=== PATIENT | female | born 1980 | race Caucasian/White ===

== ENCOUNTER 2022-05-08 16:30 | Emergency (ER) | payer MEDICARE, SELFPAY ==
--- NOTE | ~2022-05-08 | XR_ITS ---
EXAMINATION: XR CHEST CLINICAL INFORMATION: Cough with recent Covid COMPARISON: 02/08/2020 TECHNIQUE: 2 views of the chest were obtained. FINDINGS: There is an area of infiltrate seen overlying the left which is most likely in the lingula with some other ill-defined patchy densities seen more laterally. The heart size is normal. The right lung is clear. No pleural effusions. XR/XR chest 2V IMPRESSION: Left-sided infiltrate consistent with pneumonia.
[2022-05-08 17:34] VITALS: BP 139/86; PULSE 88; RESP 20; TEMP 36.2; O2SAT 98; BMI 27.4
--- NOTE | 2022-05-08 17:36 | ED.SOB ---
HPI - SOB/Dyspnea General Chief Complaint: Upper Respiratory Symptoms Stated Complaint: cob/ coughing Time Seen by Provider: 05/08/22 19:48 Source: patient Mode of arrival: ambulatory Limitations: no limitations History of Present Illness HPI Narrative: 41-year-old female presents to the ER for evaluation a harsh, deep, productive cough of green phlegm that started about 3 days ago. She reports being diagnosed with COVID-19 on April 16. She states she did not have a terrible cough with COVID and that this is new. She was vaccinated for COVID, and her disease is relatively mild. She reports the cough at this time is keeping her up at night. She is bringing up green phlegm. She denies any chest pain or fevers. She denies any wheezing or difficulty breathing however coughing fits can make it hard for her to catch her breath. She denies any chest pain or lower extremity swelling. MD elicited complaint: cough Pertinent past history: other (Recent COVID) Onset (ago): day(s) (3) Context: recent illness Timing: progressively worsening Severity: moderate Exacerbating factors: lying flat and coughing Relieving factors: nothing Associated symptoms: sputum production Related Data Previous Rx's Medication Instructions Recorded amoxicillin 875 mg-potassium 1 tab PO BID #20 tabs 05/08/22 clavulanate 125 mg tablet benzonatate 100 mg capsule 100 mg PO TID PRN cough #30 caps 05/08/22 guaifenesin 1,200 mg tablet, 1,200 mg PO BID #10 tabs 05/08/22 extended release 12 hr (Mucinex) hydrocodone-homatropine 5 mg-1.5 5 ml PO Q4-6H PRN cough #60 mL 05/08/22 mg/5 mL (5 mL) oral syrup (Hycodan) prednisone 20 mg tablet 40 mg PO DAILY #10 tabs 05/08/22 Allergies Allergy/AdvReac Type Severity Reaction Status Date / Time No Known Allergies Allergy Unverified 11/20/19 17:54 [facility] Social History Social History Advance Directives: No Advance Directives Information Provided: No Physical Exam Vital Signs: Vital Signs: Last Vital Signs Temp 97.6 F 05/08/22 20:17 Pulse 80 05/08/22 20:17 Resp 20 05/08/22 20:17 BP 141/82 H 05/08/22 20:17 Pulse Ox 98 05/08/22 20:17 O2 Del Method 05/08/22 20:17 BMI result Body Mass Index 27.4 Appearance: Alert. Oriented X3. No acute distress. Eyes: Pupils equal, round and reactive to light. ENT: Pharynx normal. Neck: Normal inspection. CVS: Normal heart rate and rhythm. Pulses normal. Respiratory: No respiratory distress. Breath sounds normal. Harsh deep cough, barking like Skin: Skin warm and dry. Normal skin color. Normal skin turgor. No rashes. Extremities: No lower extremity edema. Neuro: Oriented X 3. Grossly normal, nonfocal, steady gait Course Course Course Narrative: RME - 41 yo female with history of COVID-19 on Apr 06 (vaccinated) presents to the ER for evaluation of SOB and deep, harsh cough with green phelgm production that started 3 days ago. She did not have this cough with COVID. Worried she may have pneumonia. No hx asthma, COPD, not a smoker. Plan: CXR to r/o PNA Reevaluation(s) Reevaluation #1: Chest x-ray showing left-sided infiltrate. SpO2 remains in the high 90s. Will treat with oral antibiotics, steroids, mucolytics, antitussives. Patient agrees with plan. Stable for discharge home. Medical Decision Making Differential Diagnosis Differential Diagnoses: The differential diagnosis associated with the presentation includes COVID pneumonia, CAP, aspiration pneumonia, bronchitis, pneumonitis Independent Interpretation I performed an independent interpretation of an: Plain X-Ray Interpretation: agree with radiologist, subtle left sided opacity c/w PNA Radiology Impression Discussion of test interpretation with radiology: I have reviewed the radiologist's reading. Radiologist Impression: XR/XR chest 2V IMPRESSION: Left-sided infiltrate consistent with pneumonia. Prescription Management I considered prescription management with: Antibiotic Critical Care Time Critical Care Time Critical Care Time: No Discharge Plan Discharge Clinical Impression: Pneumonia Patient Disposition: Home, Self-Care Instructions: Pneumonia (ED) Additional Instructions: Your chest x-ray showed pneumonia in your left lung. Take the prescribed antibiotics & steroids for this. Recommend Mucinex 1200 mg two times per day x5 days Rest and drink plenty of fluids Take the prescribed cough syrup at night to help you sleep. Follow up with your doctor as needed. If you develop new or worsening symptoms call 911 or come back to the ER for further evaluation. Prescriptions: New amoxicillin-pot clavulanate 875-125 mg tablet 1 tab PO BID Qty: 20 0RF Mucinex 1,200 mg tablet extended release 12hr 1,200 mg PO BID Qty: 10 0RF hydrocodone-homatropine [Hycodan] 5-1.5 mg/5 mL (5 mL) syrup 5 ml PO Q4-6H PRN (Reason: cough) Qty: 60 0RF Rx Instructions: Partial Fill upon patient request. benzonatate 100 mg capsule 100 mg PO TID PRN (Reason: cough) Qty: 30 0RF prednisone 20 mg tablet 40 mg PO DAILY Qty: 10 0RF Referrals: Felisa Torre FNP [Primary Care Provider] - (f/u ER visit for PNA) Stand Alone Forms: Work/School Release Interventions: ED Discharge Assessment Last Done: 05/08/22 20:18 Discharge Date/Time: 05/08/22 20:19
[2022-05-08 20:17] VITALS: BP 141/82; PULSE 80; RESP 20; TEMP 36.4; O2SAT 98
== END 2022-05-08 20:19 | disposition home or self-care (01) ==
LOC: HO.ED 20:15
PROVIDERS: Emergency Provider Internal Medicine; PCP Nurse Practitioner Family
DX: J18.9 Pneumonia, unspecified organism (principal)
CPT/HCPCS: 71046; 99282; 99283